=== PATIENT | male | born 1955 | race African-American/Black ===

== ENCOUNTER 2017-06-27 09:24 | Emergency (ER) | payer OTHER ==
[2017-06-27] MEDS ORDERED: Sodium Chloride 0.9% 2.5 ML Syringe FLUSH PRN (09:57)
[2017-06-27] MEDS ORDERED: Sodium Chloride 0.9% 10 ML Syringe FLUSH PRN (09:57)
[2017-06-27] MEDS ORDERED: Sodium Chloride 0.9% 1,000 ML IV ONE (10:01)
[2017-06-27] MEDS ORDERED: Ondansetron 4 MG/2 ML SDV IVPUSH ONE (10:01)
[2017-06-27] MEDS ORDERED: Ketorolac 30 MG/ML SDV IVPUSH ONE (10:01)
--- NOTE | 2017-06-27 10:03 | EDM.PDOC ---
ED HPI GENERAL MEDICAL PROBLEM - General Chief Complaint: Respiratory Problem Stated Complaint: PT SAID HE WAS SENT OVER TO GET AN IV Time Seen by Provider: 06/27/17 09:52 - History of Present Illness INITIAL COMMENTS - FREE TEXT/NARRATIVE: HISTORY AND PHYSICAL: History of present illness: The patient is a 62-year-old male who originally was seen at [facility] for body aches malaise and flulike symptoms including nausea but no vomiting no diarrhea and had an influenza swab which was negative but due to his overall presentation he was sent here for further evaluation and care. Patient says he has been drinking a lot of fluids but always feels thirsty and he has had no discomfort with urination and no abdominal pain. On my evaluation is no chest pain or shortness of breath no throat pain sinus congestion or drainage noted your pain no neck pain no headache and has been hydrating and trying to eat as much as he can. He says he feels fatigued and tired all the time but has no significant past medical history. He has not had any falls and is not dizzy or lightheaded. He has diffuse body and joint pain. Review of systems: As per history of present illness and below otherwise all systems reviewed and negative. Past medical history: As per history of present illness and as reviewed below otherwise noncontributory. Surgical history: As per history of present illness and as reviewed below otherwise noncontributory. Social history: No reported history of drug or alcohol abuse. Family history: As per history of present illness and as reviewed below otherwise noncontributory. Physical exam: Gen.: Well-developed well-nourished man who is nontoxic and vital signs are reviewed by me. Temperature is noted by me HEENT: Atraumatic, normocephalic, pupils reactive, negative for conjunctival pallor or scleral icterus, mucous membranes moist, throat clear, neck supple, nontender, trachea midline. Lungs: Clear to auscultation, breath sounds equal bilaterally, chest nontender. Heart: S1S2, regular rhythm and tachycardic rate on my evaluation, negative for clicks, rubs, or JVD. Abdomen: Soft, nondistended, nontender. Negative for masses or hepatosplenomegaly. Negative for costovertebral tenderness. Pelvis: Stable nontender. Genitourinary: Deferred. Rectal: Deferred. Extremities: Atraumatic, negative for cords or calf pain. Neurovascular unremarkable. Neuro: Awake, alert, oriented. Cranial nerves II through XII unremarkable. Cerebellum unremarkable. Motor and sensory unremarkable throughout. Exam nonfocal. Diagnostics: CBC CMP UA urine culture blood cultures chest x-ray Influenza screening was done at the outside clinic which was negative Therapeutics: IV IV fluids Toradol Zofran Tylenol Rocephin Impression: UTI/generalized malaise and fever Definitive disposition and diagnosis as appropriate pending reevaluation and review of above. - Related Data Allergies Allergy/AdvReac Type Severity Reaction Status Date / Time No Known Allergies Allergy Verified 06/27/17 09:56 Home Meds: Home Meds . [No Known Home Meds] 06/27/17 [History] ED ROS GENERAL - Review of Systems Review Of Systems: ROS reveals no pertinent complaints other than HPI. ED EXAM, GENERAL - Physical Exam Exam: See Below (See dictation) Course - Vital Signs Last Recorded V/S: Last Vital Signs Temp 38.0 C 06/27/17 10:32 Pulse 118 H 06/27/17 09:57 Resp 18 06/27/17 09:57 BP 154/93 H 06/27/17 09:57 Pulse Ox - Orders/Labs/Meds Orders: Active Orders 24 hr Category Date Time Status Blood Glucose Check, Bedside [RC] ONETIME Care 06/27/17 10:00 Active CULTURE BLOOD [BC] Stat Lab 06/27/17 10:28 Received CULTURE BLOOD [BC] Stat Lab 06/27/17 10:35 Received CULTURE URINE [RM] Stat Lab 06/27/17 11:30 Received Sodium Chloride 0.9% [Saline Flush] Med 06/27/17 09:57 Active 10 ml FLUSH ASDIRECTED PRN Sodium Chloride 0.9% [Saline Flush] Med 06/27/17 09:57 Active 2.5 ml FLUSH ASDIRECTED PRN cefTRIAXone [Rocephin in Dextrose,Iso-Osm 2 GM/50 ML] 2 Med 06/27/17 12:24 Ordered gm Premix Bag 1 bag IV ONETIME Blood Culture x2 Reflex Set [OM.PC] Stat Oth 06/27/17 10:00 Ordered Saline Lock Insert [OM.PC] Stat Oth 06/27/17 09:57 Ordered Medication Orders Sodium Chloride (Saline Flush) 10 ml FLUSH ASDIRECTED PRN PRN Reason: Keep Vein Open Sodium Chloride (Saline Flush) 2.5 ml FLUSH ASDIRECTED PRN PRN Reason: Keep Vein Open Labs: Laboratory Tests 06/27/17 06/27/17 06/27/17 Range/Units 10:28 10:28 10:29 WBC 11.45 H (4.0-11.0) K/uL RBC 4.64 (4.50-5.90) M/uL Hgb 13.3 (13.0-17.0) g/dL Hct 38.8 (38.0-50.0) % MCV 83.6 (80.0-98.0) fL MCH 28.7 (27.0-32.0) pg MCHC 34.3 (31.0-37.0) g/dL RDW Std Deviation 44.4 (28.0-62.0) fl RDW Coeff of Navid 15 (11.0-15.0) % Plt Count 281 (150-400) K/uL MPV 10.30 (7.40-12.00) fL Neut % (Auto) 67.8 (48.0-80.0) % Lymph % (Auto) 19.9 (16.0-40.0) % [place] % (Auto) 10.4 (0.0-15.0) % Eos % (Auto) 1.6 (0.0-7.0) % Baso % (Auto) 0.3 (0.0-1.5) % Neut # (Auto) 7.8 H (1.4-5.7) K/uL Lymph # (Auto) 2.3 (0.6-2.4) K/uL [place] # (Auto) 1.2 H (0.0-0.8) K/uL Eos # (Auto) 0.2 (0.0-0.7) K/uL Baso # (Auto) 0.0 (0.0-0.1) K/uL Nucleated RBC % 0.0 /100WBC Nucleated RBCs # 0 K/uL Sodium 138 (136-146) mmol/L Potassium 4.2 (3.5-5.1) mmol/L Chloride 105 (98-110) mmol/L Carbon Dioxide 21 (21-31) mmol/L BUN 15 (6.0-23.0) mg/dL Creatinine 1.5 (0.6-1.5) mg/dL Est Cr Clr Drug Dosing 69.41 mL/min Estimated GFR (MDRD) 57.9 ml/min Glucose 117 H (60-110) mg/dL POC Glucose 118 H (60-110) mg/dL Calcium 9.8 (8.8-10.8) mg/dL Total Bilirubin 0.8 (0.1-1.5) mg/dL AST 51 H (5-40) IU/L ALT 106 H (8-54) IU/L Alkaline Phosphatase 86 (40-150) Total Protein 8.4 H (6.0-8.0) g/dL Albumin 4.1 (3.4-4.8) g/dL Globulin 4.3 H (2.0-3.5) g/dL Albumin/Globulin Ratio 1.0 L (1.3-2.8) Urine Color Urine Appearance Urine pH (5.0-8.0) Ur Specific [place] (1.001-1.035) Urine Protein (NEGATIVE) mg/dL Urine Glucose (UA) (NEGATIVE) mg/dL Urine Ketones (NEGATIVE) mg/dL Urine Occult Blood (NEGATIVE) Urine Nitrite (NEGATIVE) Urine Bilirubin (NEGATIVE) Urine Urobilinogen (<2.0) EU/dL Ur Leukocyte Esterase (NEGATIVE) Urine RBC (0-2/HPF) Urine WBC (0-5/HPF) Ur Epithelial Cells (NONE-FEW) Urine Bacteria (NEGATIVE) 06/27/17 Range/Units 11:30 WBC (4.0-11.0) K/uL RBC (4.50-5.90) M/uL Hgb (13.0-17.0) g/dL Hct (38.0-50.0) % MCV (80.0-98.0) fL MCH (27.0-32.0) pg MCHC (31.0-37.0) g/dL RDW Std Deviation (28.0-62.0) fl RDW Coeff of Navid (11.0-15.0) % Plt Count (150-400) K/uL MPV (7.40-12.00) fL Neut % (Auto) (48.0-80.0) % Lymph % (Auto) (16.0-40.0) % [place] % (Auto) (0.0-15.0) % Eos % (Auto) (0.0-7.0) % Baso % (Auto) (0.0-1.5) % Neut # (Auto) (1.4-5.7) K/uL Lymph # (Auto) (0.6-2.4) K/uL [place] # (Auto) (0.0-0.8) K/uL Eos # (Auto) (0.0-0.7) K/uL Baso # (Auto) (0.0-0.1) K/uL Nucleated RBC % /100WBC Nucleated RBCs # K/uL Sodium (136-146) mmol/L Potassium (3.5-5.1) mmol/L Chloride (98-110) mmol/L Carbon Dioxide (21-31) mmol/L BUN (6.0-23.0) mg/dL Creatinine (0.6-1.5) mg/dL Est Cr Clr Drug Dosing mL/min Estimated GFR (MDRD) ml/min Glucose (60-110) mg/dL POC Glucose (60-110) mg/dL Calcium (8.8-10.8) mg/dL Total Bilirubin (0.1-1.5) mg/dL AST (5-40) IU/L ALT (8-54) IU/L Alkaline Phosphatase (40-150) Total Protein (6.0-8.0) g/dL Albumin (3.4-4.8) g/dL Globulin (2.0-3.5) g/dL Albumin/Globulin Ratio (1.3-2.8) Urine Color YELLOW Urine Appearance SLT CLOUDY Urine pH 6.0 (5.0-8.0) Ur Specific [place] 1.020 (1.001-1.035) Urine Protein TRACE (NEGATIVE) mg/dL Urine Glucose (UA) NEGATIVE (NEGATIVE) mg/dL Urine Ketones NEGATIVE (NEGATIVE) mg/dL Urine Occult Blood LARGE H (NEGATIVE) Urine Nitrite NEGATIVE (NEGATIVE) Urine Bilirubin NEGATIVE (NEGATIVE) Urine Urobilinogen 1.0 (<2.0) EU/dL Ur Leukocyte Esterase LARGE (NEGATIVE) Urine RBC 20-25 (0-2/HPF) Urine WBC 20-25 (0-5/HPF) Ur Epithelial Cells OCCASIONAL (NONE-FEW) Urine Bacteria 3+ H (NEGATIVE) Meds: Medications Generic Name Dose Route Start Last Admin Trade Name Freq PRN Reason Stop Dose Admin Sodium Chloride 10 ml 06/27/17 09:57 Saline Flush FLUSH ASDIRECTED PRN Keep Vein Open Sodium Chloride 2.5 ml 06/27/17 09:57 Saline Flush FLUSH ASDIRECTED PRN Keep Vein Open Discontinued Medications Generic Name Dose Route Start Last Admin Trade Name Freq PRN Reason Stop Dose Admin Acetaminophen 1,000 mg 06/27/17 10:04 06/27/17 10:32 Tylenol Extra Strength PO 06/27/17 10:05 1,000 mg ONETIME ONE Administration Sodium Chloride 1,000 mls @ 999 mls/hr 06/27/17 10:06/27/17 10:34 Normal Saline IV 06/27/17 11:01 999 mls/hr STAT ONE Administration Ketorolac Tromethamine 30 mg 06/27/17 10:06/27/17 10:31 Toradol IVPUSH 06/27/17 10:02 30 mg ONETIME ONE Administration Ondansetron HCl 4 mg 06/27/17 10:06/27/17 10:32 Zofran IVPUSH 06/27/17 10:02 4 mg ONETIME ONE Administration Departure - Departure Time of Disposition: 12:25 Disposition: Home, Self-Care 01 Condition: Good Clinical Impression: UTI (urinary tract infection) Qualifiers: Urinary tract infection type: site unspecified Hematuria presence: without hematuria Qualified Code(s): N39.0 - Urinary tract infection, site not specified Fever Qualifiers: Fever type: unspecified Qualified Code(s): R50.9 - Fever, unspecified - Discharge Information Referrals: PCP,None [Primary Care Provider] - Forms: ED Department Discharge Additional Instructions: The following information is given to patients seen in the emergency department who are being discharged to home. This information is to outline your options for follow-up care. We provide all patients seen in our emergency department with a follow-up referral. The need for follow-up, as well as the timing and circumstances, are variable depending upon the specifics of your emergency department visit. If you don't have a primary care physician on staff, we will provide you with a referral. We always advise you to contact your personal physician following an emergency department visit to inform them of the circumstance of the visit and for follow-up with them and/or the need for any referrals to a consulting specialist. The emergency department will also refer you to a specialist when appropriate. This referral assures that you have the opportunity for followup care with a specialist. All of these measure are taken in an effort to provide you with optimal care, which includes your followup. Under all circumstances we always encourage you to contact your private physician who remains a resource for coordinating your care. When calling for followup care, please make the office aware that this follow-up is from your recent emergency room visit. If for any reason you are refused follow-up, please contact the [facility] emergency department at and ask to speak to the emergency department charge nurse. [facility] Primary care- Internal Medicine and Family [address] [address] Please push hydration and take her temperature treating any temperatures 100.4 or higher as a fever with Tylenol or ibuprofen. Please take antibiotics until they are finished and contact our clinic for follow-up appointment for further care and evaluation. Return to ER as needed and as discussed. - My Orders Last 24 Hours: My Active Orders 06/27/17 09:57 Sodium Chloride 0.9% [Saline Flush] 10 ml FLUSH ASDIRECTED PRN Sodium Chloride 0.9% [Saline Flush] 2.5 ml FLUSH ASDIRECTED PRN Saline Lock Insert [OM.PC] Stat 06/27/17 10:00 Blood Glucose Check, Bedside [RC] ONETIME Blood Culture x2 Reflex Set [OM.PC] Stat 06/27/17 10:28 CULTURE BLOOD [BC] Stat 06/27/17 10:35 CULTURE BLOOD [BC] Stat 06/27/17 11:30 CULTURE URINE [RM] Stat 06/27/17 12:24 cefTRIAXone [Rocephin in Dextrose,Iso-Osm 2 GM/50 ML] 2 gm Premix Bag 1 bag IV ONETIME - Assessment/Plan Last 24 Hours: My Active Orders 06/27/17 09:57 Sodium Chloride 0.9% [Saline Flush] 10 ml FLUSH ASDIRECTED PRN Sodium Chloride 0.9% [Saline Flush] 2.5 ml FLUSH ASDIRECTED PRN Saline Lock Insert [OM.PC] Stat 06/27/17 10:00 Blood Glucose Check, Bedside [RC] ONETIME Blood Culture x2 Reflex Set [OM.PC] Stat 06/27/17 10:28 CULTURE BLOOD [BC] Stat 06/27/17 10:35 CULTURE BLOOD [BC] Stat 06/27/17 11:30 CULTURE URINE [RM] Stat 06/27/17 12:24 cefTRIAXone [Rocephin in Dextrose,Iso-Osm 2 GM/50 ML] 2 gm Premix Bag 1 bag IV ONETIME
[2017-06-27] MEDS ORDERED: Acetaminophen 500 MG Tab PO ONE (10:04)
--- NOTE | 2017-06-27 11:14 | CR ---
PA and lateral chest Clinical history: Chest pain and shortness of breath Comparison: None Findings: Kyphotic angles are sharp. The cardiac mediastinum is normal and lungs are clear. Given his tory of pain there is no pneumothorax. Impression: Normal chest
[2017-06-27] MEDS ORDERED: cefTRIAXone 2 GM in Premix Bag 1 BAG IV ONE (12:24)
== END 2017-06-27 13:26 | disposition home or self-care (01) ==
LOC: MW.ED 09:24
DX: N39.0 Urinary tract infection, site not specified (principal)
CPT/HCPCS: 36415; 71046; 80053; 81001; 82962; 85025; 87040; 87086; 87088; 87186; 96361; 96365; 96375; 99284; A9270; J0696; J1885; J2405; J7040